=== PATIENT | male | born 1965 | race Caucasian/White ===

== ENCOUNTER 2016-09-06 17:26 | Emergency (ER) | payer MEDICAID ==
[~2016-09-06] VITALS: Ht 182.9 cm; Wt 56.0 kg
[~2016-09-06 17:26] MED LIST: CEPH500C3 PO; TYLE3 PO
[2016-09-06 17:43] VITALS: BP 105/70; PULSE 76; RESP 15; TEMP 99; O2SAT 97
--- NOTE | 2016-09-06 18:13 | PD ---
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 He reports injury happened approximately 3 hours ago. He reports mild pain at the site of the laceration. Bleeding well controlled. He reports the depth of insertion was approximately 1 cm Tetanus status unknown. Denies any past medical history. [facility], [facility] Past Medical History Medical History: Denies Significant Hx Diminished Hearing: No Social History Alcohol Use: No Tobacco Use: No (1 2PPD) Substance Use: No Allergies-Medications (Allergen,Severity, Reaction): Coded Allergies: No Known Allergies (Verified , 09/06/16) Reported Meds & Prescriptions Reported Meds & Active Scripts Active No Active Prescriptions or Reported Medications Review of Systems Except as stated in HPI: all other systems reviewed are Neg Physical Exam Narrative GENERAL: Well-nourished, well-developed patient. SKIN: Focused skin assessment warm/dry. One and half centimeter laceration to left medial aspect of knee. HEAD: Normocephalic. EYES: No scleral icterus. No injection or drainage. NECK: Supple, trachea midline. No JVD or lymphadenopathy. CARDIOVASCULAR: Regular rate and rhythm without murmurs, gallops, or rubs. RESPIRATORY: Breath sounds equal bilaterally. No accessory muscle use. GASTROINTESTINAL: Abdomen soft, non-tender, nondistended. MUSCULOSKELETAL: No cyanosis, or edema. Mild soft tissue swelling of the left knee without joint effusion. 1.5 cm laceration medial aspect of the superior to the patella. BACK: Nontender without obvious deformity. No CVA tenderness. 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 He reports only mild pain at the site. Presented to the emergency room essentially for tetanus shot and wound care. There is a 1.5 cm laceration to the right knee medial aspect. Patella. There is mild amount of soft tissue swelling without effusion of the joint. The wound will be repaired with sutures and tetanus status updated. Procedures Procedure Narrative LACERATION LOCATION: Left medial aspect of knee. LENGTH: 1.5 cm NUMBER OF STITCHES/EUNICE: 3 REPAIR: The area of the laceration was prepped with Betadine and sterilely draped. The laceration was infiltrated with 1% lidocaine. The wound was copiously irrigated and explored without evidence of foreign body, tendon injury or neurovascular injury. The wound was closed using 3-0 Ethilon. This was a [single] layer repair. A sterile dressing was applied. The patient was advised to keep the dressing clean and dry. Patient tolerated the procedure well. Diagnosis Primary Impression: Laceration of left lower extremity Qualified Code: S81.812A - Laceration of left lower extremity, initial encounter Referrals: Primary Care Physician Additional Instructions: Follow-up see her primary doctor in 2 days for wound recheck. Do not submerge the wound in pools, [place], or yusuf water. Return if he should develop fever, joint swelling, purulent drainage from the wound or any new concerning symptoms. Scripts Cephalexin (Keflex)250 Mg Opi109 Mg PO Q6H #20 CAP Ref 0 Prov:Maya Mendez 09/06/16 Disposition: 01 DISCHARGE HOME Condition: Stable Maya Mendez September 06, 2016 18:13
[2016-09-06] MEDS ORDERED: LIDOCAINE 1%/EPINEPHrine 1:100,000 SOLN 20 ML VIAL INFIL ONE (18:15)
[2016-09-06] MEDS ORDERED: LIDOCAINE 2%/EPINEPHrine 1:100,000 30ML MDV INFIL ONE (18:30)
[2016-09-06] MEDS ORDERED: CEPH-459 PO (18:42)
[2016-09-06] MEDS ORDERED: TETANUS/DIPHTHERIA TOXOID ADULT 0.5 ML VIAL IM ONE (18:45)
== END 2016-09-06 19:02 | disposition home or self-care (01) ==
LOC: PHEFT 17:26
DX: S81.012A Laceration without foreign body, left knee, initial encounter (principal); F17.200 Nicotine dependence, unspecified, uncomplicated; W26.0XXA Contact with knife, initial encounter; Z23 Encounter for immunization
CPT/HCPCS: 12001; 90714; 96372